=== PATIENT | male | born 1985 | race Caucasian/White ===

== ENCOUNTER 2020-01-19 22:58 | Emergency (ER) | payer SELFPAY ==
[~2020-01-19] VITALS: Ht 170 cm; Wt 90.7 kg
--- OUTSIDE RECORDS SUMMARY | 2020-01-19 23:05 | XMS REPORT | Continuity of Care Document ---
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 00:00: 00 DIS Outpatient BUBBA LANDON LPC [id number] 06/12/2019 22:51:00 019 01:18:00 [facility] [id number] 02/09/2014 10:54:00 02/09/2014 10:54 :00 DIS Outpatient MERCEDEZ BIRD, SLIME [facility]ems [facility] [id number] 08/07/2017 19:56:00 08/07/2017 19:56: 00 CAN Outpatient [facility] HCE VOMITING [id number] 08/07/2017 17:06:00 08/07/2017 19:56: 00 DIS Emergency [facility] ER NAUSEA WITH VOMITING, UNSPEC IFIED [id number] 08/07/2017 17:06:00 08/07/2017 17:06: 00 DIS Outpatient [facility] HCE NAUSEA WITH VOMITING, UNSPEC IFIED [id number] 06/16/2017 08:36:00 06/16/2017 12:00: 00 DIS Emergency CAROLYNN GAMBOA [facility] ER RIGHT LOWER QUADRANT PAIN [id number] 06/16/2017 08:36:00 06/16/2017 08:36: 00 DIS Outpatient CAROLYNN GAMBOA [facility] HCE RIGHT LOWER QUADRANT PAIN [id number] 06/30/2016 17:41:00 06/30/2016 18:28: 00 DIS Emergency [facility] ER UNSPECIFIED OPEN WOUND, LEFT HIP, SUBSEQUENT ENCOUNTER [id number] 06/30/2016 17:41:00 06/30/2016 17:41: 00 DIS Outpatient IRMA DASILVA [facility] HCE LEG WOUND [id number] 06/27/2016 21:58:00 06/27/2016 23:33: 00 DIS Emergency SAMANTA DAMON MD [facility] ER PAIN IN LEFT THIGH [id number] 06/27/2016 21:58:00 06/27/2016 21:58: 00 DIS Outpatient SAMANTA DAMON MD [facility] HCE PAIN IN LEFT THIGH [id number] 04/02/2016 00:47:00 04/02/2016 02:48: 00 [facility] [id number] 04/02/2016 00:47:00 04/02/2016 00:47: 00 DIS Outpatient [facility] HCE OTHER CHEST PAIN [id number] 01/27/2017 12:52:17 Document Registration [id number] 08/24/2019 03:47:27 0 07:05:00 DIS Emergency SHELBY HURLEY [facility] [id number] 06/21/2019 11:01:45 9 23:59:59 CLS Outpatient FIDELIA BULL [facility] LAB [id number] 08/24/2019 04:36:13 Document Registration [id number] 08/24/2019 04:21:48 Document Registration
[2020-01-19] MEDS ORDERED: TETRACAINE 0.5% OPHTH SOLN 4 ML BTL (SINGLE DOSE ONLY) ONE (23:11)
[2020-01-19] MEDS ORDERED: FLUORESCEIN (FLUOR-I-STRIPS) 1 MG STRP ONE (23:12)
--- NOTE | 2020-01-19 23:20 | ED EENT ---
History of Present Illness General Chief Complaint: Eye Problems Stated Complaint: EYE LACERATION Source: patient Exam Limitations: no limitations History of Present Illness Date Seen by Provider: Jan 19, 2020 Time Seen by Provider: 23:10 Initial Comments Just prior to arrival, fell outside of his house landing in a [place]. Cut under his right eye and having irritation to his R eye as well. Nose bleed that stopped prior to arrival. Other than a few small scrapes of extremities, no other injury or complaint. Allergies and Home Medications Allergies Coded Allergies: Penicillins (Verified Allergy, Unknown, 01/19/20) Patient Home Medication List Home Medication List Reviewed: Yes Review of Systems Review of Systems Constitutional: No dizziness, No fever, No malaise, No weakness Eyes: See HPI; Denies Blindness, Denies Blurred Vision, Denies Drainage; Pain; Denies Photophobia, Denies Tunnel Vision Ears: No Symptoms Reported Nose: congestion, epistaxis (resolved); denies purulent discharge Mouth: no symptoms reported Throat: no symptoms reported Respiratory: No cough, No short of breath Cardiovascular: No chest pain, No palpitations Gastrointestinal: No nausea, No vomiting Musculoskeletal: No back pain, No joint pain Skin: see HPI, other (cut under R eye) Neurological: Denies Headache, Denies Numbness, Denies Weakness Past Esaovue-Emknhb-Dfrwvb Hx Past Med/Social Hx: Reviewed Nursing Past Med/Soc Hx Patient Social History Alcohol Use: Regular Use Number of Drinks Today: 14 Alcohol Beverage of Choice: Beer Recreational Drug Use: No Smoking Status: Never a Smoker Type Used: Smokeless Tobacco 2nd Hand Smoke Exposure: No Recent Foreign Travel: No Contact w/Someone Who Travel: No Recent Hopitalizations: No Physical Abuse: No Sexual Abuse: No Past Medical History Surgeries: No Respiratory: No Cardiac: No Neurological: No Genitourinary: No Gastrointestinal: No Musculoskeletal: No Endocrine: No HEENT: No Cancer: No Psychosocial: No Integumentary: No Physical Exam Vital Signs Vital Signs - First Documented 01/19/20 23:02 Temp 36.4 Pulse 106 Resp 16 B/P (MAP) 144/97 (113) Pulse Ox 98 O2 Delivery Room Air Height, Weight, BMI Height: '" Weight: lbs. oz. 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 Flourescien stain/ hernandez lamp, no corneal abrasion. Conjunctival injection. normal cornea) Anesthesia (gtts): Tetracaine Wound Location: Face Wound Length (cm): 1.5 Wound's Depth, Shape: superficial, flap Wound Explored: clean Other Closure Supply: Wound Adhesive Progress/Results/Core Measures Results/Orders My Orders Orders - LYSSA DE LA ROSA DO Tetracaine 0.5% Ophth Izzy Sdv (Tetracai (01/19/20 23:11) Fluorescein Strips (Nxlzv-Q-Qhuwdu) (01/19/20 23:12) Tetracaine 0.5% Ophth Izzy Sdv (Tetracai (01/19/20 23:30) Vital Signs/I&O 01/19/20 23:02 Temp 36.4 Pulse 106 Resp 16 B/P (MAP) 144/97 (113) Pulse Ox 98 O2 Delivery Room Air Departure Impression Primary Impression: Laceration of face Qualified Codes: S01.81XA - Laceration without foreign body of other part of head, initial encounter Additional Impression: Contusion of eye Qualified Codes: S05.11XA - Contusion of eyeball and orbital tissues, right eye, initial encounter Disposition: HOME, SELF-CARE Condition: Improved Departure-Patient Inst. Decision time for Depature: 23:23 Patient Instructions: Laceration Repair With Glue (DC) Add. Discharge Instructions: See a local Eye Doctor in 2 to 3 days if your eye is not feeling normal or you have any problems with your vision All discharge instructions reviewed with patient and/or family. Voiced understanding. LYSSA DE LA ROSA DO Jan 19, 2020 23:20
[2020-01-19 23:27] VITALS: BP 144/97
[2020-01-19] MEDS ORDERED: TETRACAINE 0.5% OPHTH SOLN 4 ML BTL (SINGLE DOSE ONLY) OP ONE (23:30)
== END 2020-01-19 23:28 | disposition home or self-care (01) ==
LOC: ER FS 23:00
DX: S01.81XA Laceration without foreign body of other part of head, initial encounter (principal); S05.11XA Contusion of eyeball and orbital tissues, right eye, initial encounter; Z88.0 Allergy status to penicillin; W19.XXXA Unspecified fall, initial encounter
CPT/HCPCS: 12011

== ENCOUNTER 2020-01-27 05:44 | Emergency (ER) | payer SELFPAY ==
[~2020-01-27] VITALS: Ht 170.4 cm; Wt 92.3 kg
[2020-01-27 05:49] VITALS: BP 161/102
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
--- NOTE | 2020-01-27 06:10 | ED Upper Extremity ---
General Chief Complaint: Upper Extremity Stated Complaint: LEFT WRIST INJURY Nursing Sepsis Screen: No Definite Risk Source: patient History of Present Illness Date Seen by Provider: Jan 27, 2020 Time Seen by Provider: 06:00 Initial Comments The patient is a pleasant 34-year-old male presents for evaluation of left distal forearm pain after an injury 2 days ago. He states that he was lifting an axle to a vehicle when he felt his wrist snap. He felt that he had only sprained it but the swelling and pain continued to worsen so he came in today for an evaluation. He denies any numbness or weakness or any other complaints. He is alert and oriented 4, calm, and appears to be in no distress. He drove himself to the hospital today. Onset: other (2 days ago) Severity: moderate Pain/Injury Location: left forearm (left distal forearm) Method of Injury: twisted Modifying Factors: Improves With Movement (makes it worse) Allergies and Home Medications Allergies Coded Allergies: Penicillins (Verified Allergy, Unknown, 01/19/20) Patient Home Medication List Home Medication List Reviewed: Yes Review of Systems Constitutional: no symptoms reported EENTM: no symptoms reported Respiratory: no symptoms reported Cardiovascular: no symptoms reported Gastrointestinal: no symptoms reported Genitourinary: no symptoms reported Musculoskeletal: joint pain (left distal forearm pain and swelling), joint swelling Skin: no symptoms reported Psychiatric/Neurological: No Symptoms Reported All Other Systems Reviewed Negative Unless Noted: Yes Past Ekhpbbb-Klvpot-Ozpouq Hx Past Med/Social Hx: Reviewed Nursing Past Med/Soc Hx Patient Social History Alcohol Use: Denies Use Number of Drinks Today: AA Alcohol Beverage of Choice: Beer Recreational Drug Use: No Type Used: Smokeless Tobacco 2nd Hand Smoke Exposure: No Recent Foreign Travel: No Contact w/Someone Who Travel: No Recent Infectious Disease Expo: No Recent Hopitalizations: No Physical Abuse: No Sexual Abuse: No Mistreated: No Fear: No Past Medical History Surgeries: No Respiratory: No Cardiac: No Neurological: No Genitourinary: No Gastrointestinal: No Musculoskeletal: No Endocrine: No HEENT: No Cancer: No Psychosocial: No Integumentary: No Physical Exam Vital Signs Vital Signs - First Documented 01/27/20 05:49 Temp 36.3 Pulse 92 Resp 16 B/P (MAP) 161/102 (121) Pulse Ox 98 O2 Delivery Room Air Capillary Refill : Less Than 3 Seconds Height, Weight, BMI Height: '" Weight: lbs. oz. kg; 31.00 BMI Method: General Appearance: WD/WN, no apparent distress HEENT: PERRL/EOMI, normal ENT inspection Neck: non-tender, full range of motion, normal inspection Cardiovascular: regular rate, rhythm, no edema Respiratory: lungs clear, normal breath sounds, no respiratory distress, no accessory muscle use Shoulder: normal inspection, non-tender, no evidence of injury, normal ROM Elbow/Forearm: bone tenderness (left distal radius with ttp and swelling, no dislocation/deformity), soft tissue tenderness (left distal forearm on dorsal radial side) Wrist: Yes normal inspection, Yes non-tender, Yes no evidence of injury, Yes normal ROM Hand: normal inspection, non-tender, no evidence of injury, normal ROM (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 Sugar tong Ortho-Glass splint applied by RN. No sign of compartment syndrome before after the splinting. Advised close follow-up with Dr. Neil (orthopedics) on Wednesday. Advised the patient to take ibuprofen or Tylenol for pain relief and if that is not helping enough to take the prescribed medication. Advised return to the emergency Department immediately for new or worsening symptoms. The patient expresses verbal understanding and agreement with the plan and is stable for discharge. Departure Impression Primary Impression: Closed fracture of left distal radius Disposition: HOME, SELF-CARE Condition: Stable Departure-Patient Inst. Decision time for Depature: 06:14 Referrals: NO,LOCAL PHYSICIAN (PCP/Family) Primary Care Physician Patient Instructions: Radius Fracture (DC), Forearm Fracture (DC) Add. Discharge Instructions: Call Dr. Neil from orthopedics on Wednesday to arrange follow-up. He will need to have repeated x-rays performed to make sure the ear wound is healing properly. Keep the splint in place until he follow up with orthopedics. It does appear that the bones are lined up well enough that he should not need to have surgery. Take the prescribed medication as directed, as needed. Return to the emergency Department immediately for new or worsening symptoms. If your pain gets significantly worse and/or you lose feeling or movement of her fingers you should loosen up the splint immediately and come to the emergency department. Scripts Tramadol HCl (Tramadol HCl) 50 Mg Tablet 50 MG PO Q6H PRN for PAIN for 5 Days, #15 TAB 0 Refills Prov: ELLEN SIBLEY DO 01/27/20 ELLEN SIBLEY DO Jan 27, 2020 06:10
[2020-01-27] MEDS ORDERED: TRM50T PO (06:16)
--- NOTE | 2020-01-27 07:07 | Diagnostic Imaging Report ---
Indication: Left wrist injury. Comparison: None. Findings: 3 views of the left wrist demonstrate nondisplaced comminuted fracture of the distal radial metaphysis with some intra-articular involvement. There is a nondisplaced fracture of the ulnar styloid. Carpal articulations are intact. Impression: Distal radial and ulnar fractures. Dictated by: Dictated on workstation # [id number]
== END 2020-01-27 06:19 | disposition home or self-care (01) ==
LOC: EDUNIT# 05:44 → ER FS 05:47
DX: S52.502A Unspecified fracture of the lower end of left radius, initial encounter for closed fracture (principal); Z88.0 Allergy status to penicillin; X50.1XXA Overexertion from prolonged static or awkward postures, initial encounter
CPT/HCPCS: 29125; 73110